=== PATIENT | male | born 1945 | race Caucasian/White ===

== ENCOUNTER 2019-06-09 01:32 | Inpatient (IN) | payer MEDICARE ==
[~2019-06-09] VITALS: Ht 177.8 cm; Wt 99.9 kg
[~2019-06-09 01:32] MED LIST: ASCO500T8 PO; ASPI-650 PO; ASPI81TA50 PO; ATEN-104 PO; CARB1TAB2 PO; CITA10TA8 PO; DOCU-131 PO; FENT1PAT77 TD; FERR325T23 PO; LACT1CAP24 PO; LEVO112T4 PO; LOSA50TA14 PO; METF500T17 PO; ROPI1TAB2 PO; SIMV40TA3 PO; TAMS0.4C2 PO
[2019-06-09] MEDS ORDERED: PIPERACILLIN/TAZO/PMX 3.375GM 50 ML ONE (01:42)
--- NOTE | 2019-06-09 01:50 | NUR ---
PT BIB [facility], RESPONSIVE ONLY TO PAIN. PT WITH LOW BP, SBP IN THE 50S, PER [facility]. NOREPI DRIP STARTED IN THE FIELD. PT ATTACHED TO ALL MONITORS.
--- NOTE | 2019-06-09 01:51 | NUR ---
DR LUCERO UNABLE TO REACH FAMILY
[2019-06-09] MEDS ORDERED: SODIUM CHLORIDE 0.9% 1,000ML IVBOLUS ONE ×2 (02:00→03:00)
[2019-06-09] MEDS ORDERED: SODIUM CHLORIDE FLUSH 10ML SYR IVF ONE (02:00)
[2019-06-09] MEDS ORDERED: VANCOMYCIN PER PHARMACY IV ONE (02:00)
[2019-06-09] MEDS ORDERED: PIPERACILLIN/TAZO/PMX 3.375GM 50 ML IVPB ONE (02:00)
[2019-06-09] MEDS ORDERED: PANTOPRAZOLE 80 MG in SODIUM CHLORIDE 0.9% 100 ML IV SCH (02:02)
--- NOTE | 2019-06-09 02:02 | NUR ---
ER MD AT BEDSIDE TO ASSESS BLOOD IN STOOL. POSITIVE RESULTS
--- NOTE | 2019-06-09 02:02 | NUR ---
pt hypovolemic, unable to visualize veins for CVP, will place central line in groin. Pt was heme positive as well, pt did cry out with rectal check. Remains hypotensive, sr monitor rate 70's, pt is on beta constance
--- NOTE | 2019-06-09 02:05 | NUR ---
ER RESIDENT PRASHANT TO INSERT LEFT FEMORAL LINE AT THIS TIME.
--- NOTE | 2019-06-09 02:06 | NUR ---
LAB AT BEDSIDE TO DRAW ALL BLOOD CULTURES.
[2019-06-09 02:21] LABS: MEAN CORPUSCULAR HEMOGLOBIN 31.4 pg (27.5-34.5); MEAN CORPUSCULAR HGB CONC 32.3 g/dL (33.2-36.2); MEAN CORPUSCULAR VOLUME 97.3 fL (81-97); MEAN PLATELET VOLUME 7.5 fL (7.4-10.4); PLATELET COUNT 173 x10^3/uL (130-400); RED BLOOD COUNT 3.93 x10^6/uL (4.38-5.82); RED CELL DISTRIBUTION WIDTH 13.9 % (9.4-14.8)
[2019-06-09] MEDS ORDERED: MELA1TAB19 SL (02:22)
[2019-06-09] MEDS ORDERED: INSU100C5 SQ-INSULIN (02:22)
[2019-06-09] MEDS ORDERED: SIMV40TA3 PO (02:22)
[2019-06-09] MEDS ORDERED: CARB1TAB44 PO (02:22)
[2019-06-09] MEDS ORDERED: TAMS-11 PO (02:22)
[2019-06-09] MEDS ORDERED: ATEN50TA41 PO (02:22)
[2019-06-09] MEDS ORDERED: HYDR-36 PO (02:22)
[2019-06-09] MEDS ORDERED: PANTOPRAZOLE 40 MG IV ONE (02:27)
[2019-06-09] MEDS ORDERED: PLEASE ENTER HEIGHT AND WEIGHT MC SCH (02:30)
[2019-06-09] MEDS ORDERED: NOREPINEPHRINE 4 MG in SODIUM CHLORIDE 0.9% 246 ML IV PRN ×2 (02:30→03:44)
[2019-06-09] MEDS ORDERED: PANTOPRAZOLE 40 MG IV IVPush ONE (02:30)
[2019-06-09 02:31] LABS: ALANINE AMINOTRANSFERASE 8 U/L (12-78); ALBUMIN 2.4 g/dL (3.4-5.0); ANION GAP 12 mmol/L (5-15); CALCIUM 8.1 mg/dL (8.5-10.1); CHLORIDE 118 mmol/L (98-107); CREATININE 1.87 mg/dL (0.7-1.3)
[2019-06-09 02:32] LABS: INTERNATIONAL NORMALIZED RATIO 1.12 (0.93-1.1); PROTHROMBIN TIME 11.7 Seconds (9.6-11.5)
[2019-06-09 02:35] LABS: ALKALINE PHOSPHATASE 66 U/L (45-117); BILIRUBIN,TOTAL 1.1 mg/dL (0.2-1.0); TOTAL PROTEIN 5.1 g/dL (6.4-8.2); TROPONIN I 0.015 ng/mL (0.000-0.045)
--- NOTE | 2019-06-09 02:37 | NUR ---
MED REQUEST SENT TO PHARMACY
--- NOTE | 2019-06-09 02:38 | NUR ---
PER DR LUCERO, HOLD ABX
[2019-06-09 02:40] LABS: MD YES
[2019-06-09 02:42] LABS: BAND#(MANUAL) 1.22 x10^3/uL; BANDS%(MANUAL) 14 % (0-7); LYMPHS% (MANUAL) 23 % (22-44); MONOS% (MANUAL) 8 % (2-9); SEG#(MANUAL) 4.79 x10^3/uL (1.8-6.8); SEGS% (MANUAL) 55 % (42-75)
[2019-06-09 02:43] LABS: ANISOCYTOSIS 1+; ECHINOCYTES 1+; NRBC % (MANUAL) 1 % (0-1)
[2019-06-09 02:44] LABS: <PLATELET ESTIMATE> DECREASED; <PLT MORPHOLOGY> NORMAL PLT MORPH
[2019-06-09] MEDS ORDERED: SODIUM CHLORIDE 0.9% 1,000 ML IV ONE (02:48)
[2019-06-09] MEDS ORDERED: VANCOMYCIN 1,800 MG in SODIUM CHLORIDE 0.9% 250 ML IV ONE (03:00)
--- NOTE | 2019-06-09 03:10 | NUR ---
antibiotics infusing, blood cultures drawn times 2 prior to administration
--- NOTE | 2019-06-09 03:12 | NUR ---
HOSPITALIST TO BEDSIDE AT THIS TIME
[2019-06-09] MEDS ORDERED: morphine SULFATE 10 MG/ML, 1ML IVPush PRN (03:30)
[2019-06-09] MEDS ORDERED: LACTATED RINGERS 1,000 ML IV SCH (03:30)
--- NOTE | 2019-06-09 03:35 | NUR ---
PT TO CT AT THIS TIME
[2019-06-09] MEDS ORDERED: VANCOMYCIN PER PHARMACY MC PRN (04:00)
[2019-06-09] MEDS ORDERED: ZOSYN PER PHARMACY MC PRN (04:00)
--- NOTE | 2019-06-09 04:00 | NUR ---
pt remains in CT at this time. CT notes that pt is currently stable, have multiple test to do.
--- NOTE | 2019-06-09 04:10 | NUR ---
PT ADULT DIAPER CHANGED. SMALL AMOUNT OF BLACK TARRY STOOL, PT SKIN CLEANSED. NEW, CLEAN ADULT DIAPER PLACED.
--- NOTE | 2019-06-09 04:25 | NUR ---
PT RETURN FROM CT, B/P 84/51, TITRATE LEVO. PT PLACED ON [facility]OS[facility]ITAL BED FOR COMFORT. LAB TO BEDSIDE TO DRAW.
--- NOTE | 2019-06-09 05:05 | NUR ---
UNABLE TO RETRACT PTS [place], MULTIPLE ATTEMPTS BY 2 DIFFERENT STAFF MEMBERS, STERILE FIELD MAINTAINED. AREA CLEANSED WELL, NO DISCHARGE, REDNESS, DRAINAGE. AWARE AND WILL PALCE CONDOM CATH. PT HAD LARGE AMOUNT OF URINE OUT FROM CT.
--- NOTE | 2019-06-09 05:14 | NUR ---
REPORT GIVEN TO BLANCA ROBERTS IN CCU.
[2019-06-09] MEDS: PANTOPRAZOLE 40 MG IV IV SCH (05:16)
--- NOTE | 2019-06-09 05:32 | NUR ---
Pt's son calls at this time and updated on situation. States that he will be coming down to the hospital this am. Aware that pt is critically ill but stable at this time and going to ICU level care. Son notes that pt is a DNR and that he has POA. Clarify that pt does not desire CPR, son aware of the interventions thus far.
[2019-06-09] MEDS ORDERED: PHARMACOKINETIC MONITORING MC PRN (06:30)
[2019-06-09 08:10] LABS: CLOSTRIDIUM DIFFICILE ANTIGEN NEGATIVE; CLOSTRIDIUM DIFFICILE TOXIN NEGATIVE (Negative)
[2019-06-09] MEDS: SODIUM CHLORIDE 0.9% 1,000 ML IV SCH ×2 (09:30→17:06)
[2019-06-09] MEDS: INSULIN LISPRO 100 UNITS/ML, PEN SQ-INSULIN SCH ×3 (11:00→20:43)
[2019-06-09] MEDS: PIPERACILLIN/TAZO/PMX 2.25GM 50 ML IVPB SCH ×2 (12:07→17:05)
[2019-06-09 12:56] LABS: MICROSCOPIC INDICATED
[2019-06-09 12:57] LABS: CULTURE INDICATED? YES
[2019-06-10] MEDS ORDERED: FENTANYL PF 100 MCG/2ML ONE (00:11)
[2019-06-10] MEDS: PIPERACILLIN/TAZO/PMX 2.25GM 50 ML IVPB SCH ×3 (00:14→12:16)
[2019-06-10] MEDS ORDERED: FENTANYL PF 100 MCG/2ML IVPush PRN (00:30)
[2019-06-10] MEDS: SODIUM CHLORIDE 0.9% 1,000 ML IV SCH (02:19)
[2019-06-10 04:07] VITALS: BP 104/57
[2019-06-10 04:14] LABS: MEAN CORPUSCULAR HEMOGLOBIN 32.2 pg (27.5-34.5); MEAN CORPUSCULAR HGB CONC 33.7 g/dL (33.2-36.2); MEAN CORPUSCULAR VOLUME 95.4 fL (81-97); MEAN PLATELET VOLUME 7.3 fL (7.4-10.4); PLATELET COUNT 178 x10^3/uL (130-400); RED BLOOD COUNT 3.47 x10^6/uL (4.38-5.82); RED CELL DISTRIBUTION WIDTH 14.2 % (9.4-14.8)
[2019-06-10] MEDS: PANTOPRAZOLE 40 MG IV IV SCH (04:25)
[2019-06-10 04:26] LABS: ANION GAP 8 mmol/L (5-15); CALCIUM 7.7 mg/dL (8.5-10.1); CHLORIDE 121 mmol/L (98-107); CREATININE 1.17 mg/dL (0.7-1.3)
[2019-06-10 04:33] LABS: MD YES
[2019-06-10 04:35] LABS: <PLATELET ESTIMATE> ADEQUATE; <RBC MORPHOLOGY> NORMAL; BANDS%(MANUAL) 11 % (0-7); LYMPHS% (MANUAL) 10 % (22-44); MONOS% (MANUAL) 3 % (2-9); SEGS% (MANUAL) 76 % (42-75); SMALL PLATELETS 1+
[2019-06-10] MEDS: INSULIN LISPRO 100 UNITS/ML, PEN SQ-INSULIN SCH ×4 (06:19→23:00)
[2019-06-10] MEDS: SODIUM CHLORIDE 0.45% 1,000 ML IV SCH ×2 (06:52→17:30)
[2019-06-10 16:43] VITALS: BP 121/58
[2019-06-10] MEDS: CARBIDOPA/LEVODOPA CR 50 MG/200 MG TABLET PO SCH ×2 (17:30→21:01)
[2019-06-10] MEDS: ASPIRIN 325 MG TABLET EC PO SCH (17:30)
[2019-06-10] MEDS: PIPERACILLIN/TAZO/PMX 4.5GM 100 ML IVPB SCH (17:55)
[2019-06-10 19:44] VITALS: BP 104/64
[2019-06-10] MEDS: metFORMIN 500 MG TABLET PO SCH (21:00)
[2019-06-10] MEDS: ROPINIROLE 1MG TABLET PO SCH (21:01)
[2019-06-10] MEDS: SIMVASTATIN 40 MG TABLET PO SCH (21:02)
[2019-06-11] MEDS: PIPERACILLIN/TAZO/PMX 4.5GM 100 ML IVPB SCH ×4 (00:26→18:09)
[2019-06-11 00:27] VITALS: BP 103/63
[2019-06-11] MEDS: PANTOPRAZOLE 40 MG IV IV SCH (03:58)
[2019-06-11] MEDS: SODIUM CHLORIDE 0.45% 1,000 ML IV SCH ×2 (04:02→13:42)
[2019-06-11] MEDS: INSULIN LISPRO 100 UNITS/ML, PEN SQ-INSULIN SCH ×4 (05:00→23:00)
[2019-06-11] MEDS: CARBIDOPA/LEVODOPA CR 50 MG/200 MG TABLET PO SCH ×4 (05:17→21:38)
[2019-06-11] MEDS: ASPIRIN 325 MG TABLET EC PO SCH ×2 (05:17→17:10)
[2019-06-11 05:55] LABS: MEAN CORPUSCULAR HEMOGLOBIN 32.1 pg (27.5-34.5); MEAN CORPUSCULAR HGB CONC 33.7 g/dL (33.2-36.2); MEAN CORPUSCULAR VOLUME 95.4 fL (81-97); MEAN PLATELET VOLUME 7.5 fL (7.4-10.4); PLATELET COUNT 144 x10^3/uL (130-400); RED BLOOD COUNT 3.12 x10^6/uL (4.38-5.82); RED CELL DISTRIBUTION WIDTH 14.1 % (9.4-14.8)
[2019-06-11 05:58] LABS: ANION GAP 7 mmol/L (5-15); CALCIUM 7.8 mg/dL (8.5-10.1); CHLORIDE 117 mmol/L (98-107)
[2019-06-11] MEDS ORDERED: VANCOMYCIN 1,800 MG in SODIUM CHLORIDE 0.9% 250 ML IV SCH (06:00)
[2019-06-11 06:24] LABS: BASOPHILS # (AUTO) 0.01 x10^3/uL (0-0.1); BASOPHILS % (AUTO) 0 % (0-1); EOSINOPHILS # (AUTO) 0.08 x10^3/uL (0-0.4); EOSINOPHILS % (AUTO) 1 % (1-7); LYMPHOCYTES # (AUTO) 1.55 x10^3/uL (1-3.4); LYMPHOCYTES % (AUTO) 19 % (22-44); MD SCAN; MONOCYTES # (AUTO) 0.34 x10^3/uL (0.2-0.8); MONOCYTES % (AUTO) 4 % (2-9); NEUTROPHILS # (AUTO) 6.28 x10^3/uL (1.8-6.8); NEUTROPHILS % (AUTO) 76 % (42-75)
[2019-06-11 07:23] VITALS: BP 111/73
[2019-06-11] MEDS: metFORMIN 500 MG TABLET PO SCH ×2 (09:00→21:38)
[2019-06-11] MEDS: CITALOPRAM 10 MG TABLET PO SCH (09:04)
[2019-06-11] MEDS: LOSARTAN 50MG TABLET PO SCH (09:04)
[2019-06-11] MEDS: FERROUS SULFATE 325 MG TABLET PO SCH (09:04)
[2019-06-11] MEDS: TAMSULOSIN 0.4 MG CAP.ER.24H PO SCH (09:04)
[2019-06-11] MEDS: LEVOTHYROXINE 112 MCG TABLET PO SCH (09:05)
[2019-06-11] MEDS: ATENOLOL 50 MG TABLET PO SCH (09:05)
[2019-06-11 14:02] VITALS: BP 114/68
[2019-06-11 19:58] VITALS: BP 112/62
[2019-06-11] MEDS: SIMVASTATIN 40 MG TABLET PO SCH (21:38)
[2019-06-11] MEDS: ROPINIROLE 1MG TABLET PO SCH (21:38)
[2019-06-12] MEDS: SODIUM CHLORIDE 0.45% 1,000 ML IV SCH ×2 (00:06→11:00)
[2019-06-12] MEDS: PIPERACILLIN/TAZO/PMX 4.5GM 100 ML IVPB SCH ×5 (00:06→23:53)
[2019-06-12 01:31] VITALS: BP 109/62
[2019-06-12] MEDS: PANTOPRAZOLE 40 MG IV IV SCH (04:13)
[2019-06-12] MEDS: INSULIN LISPRO 100 UNITS/ML, PEN SQ-INSULIN SCH ×2 (05:00→11:00)
[2019-06-12] MEDS: ASPIRIN 325 MG TABLET EC PO SCH ×2 (06:08→18:23)
[2019-06-12] MEDS: CARBIDOPA/LEVODOPA CR 50 MG/200 MG TABLET PO SCH ×4 (06:08→20:59)
[2019-06-12 07:11] VITALS: BP 134/74
[2019-06-12] MEDS: FERROUS SULFATE 325 MG TABLET PO SCH (08:58)
[2019-06-12] MEDS: metFORMIN 500 MG TABLET PO SCH (08:58)
[2019-06-12] MEDS: TAMSULOSIN 0.4 MG CAP.ER.24H PO SCH (08:58)
[2019-06-12] MEDS: ATENOLOL 50 MG TABLET PO SCH (08:58)
[2019-06-12] MEDS: CITALOPRAM 10 MG TABLET PO SCH (08:58)
[2019-06-12] MEDS: LEVOTHYROXINE 112 MCG TABLET PO SCH (08:58)
[2019-06-12] MEDS: LOSARTAN 50MG TABLET PO SCH (08:59)
[2019-06-12 13:37] VITALS: BP 137/71
[2019-06-12 19:47] VITALS: BP 127/71
[2019-06-12] MEDS: ROPINIROLE 1MG TABLET PO SCH (20:59)
[2019-06-12] MEDS: SIMVASTATIN 40 MG TABLET PO SCH (20:59)
[2019-06-13 01:09] VITALS: BP 132/66
[2019-06-13 03:26] LABS: ANION GAP 7 mmol/L (5-15); CALCIUM 7.6 mg/dL (8.5-10.1); CHLORIDE 117 mmol/L (98-107)
[2019-06-13 03:27] LABS: CREATININE 0.68 mg/dL (0.7-1.3)
[2019-06-13 03:33] LABS: MEAN CORPUSCULAR HEMOGLOBIN 32.2 pg (27.5-34.5); MEAN CORPUSCULAR HGB CONC 33.6 g/dL (33.2-36.2); MEAN CORPUSCULAR VOLUME 95.9 fL (81-97); MEAN PLATELET VOLUME 7.6 fL (7.4-10.4); PLATELET COUNT 146 x10^3/uL (130-400); RED CELL DISTRIBUTION WIDTH 13.6 % (9.4-14.8)
[2019-06-13 03:53] LABS: MD YES
[2019-06-13 03:57] LABS: <PLATELET ESTIMATE> ADEQUATE; ANISOCYTOSIS 1+; EOS#(MANUAL) 0.15 x10^3/uL (0.0-0.4); EOS% (MANUAL) 2 % (1-7); LYMPH#(MANUAL) 0.99 x10^3/uL (1-3.4); LYMPHS% (MANUAL) 13 % (22-44); MONOS#(MANUAL) 0.38 x10^3/uL (0.3-2.7); MONOS% (MANUAL) 5 % (2-9); SEG#(MANUAL) 6.08 x10^3/uL (1.8-6.8); SEGS% (MANUAL) 80 % (42-75)
[2019-06-13 03:58] LABS: <PLT MORPHOLOGY> NORMAL PLT MORPH
[2019-06-13] MEDS: PANTOPRAZOLE 40 MG IV IV SCH (04:04)
[2019-06-13] MEDS: PIPERACILLIN/TAZO/PMX 4.5GM 100 ML IVPB SCH ×4 (05:51→23:44)
[2019-06-13 07:05] VITALS: BP 109/69
[2019-06-13] MEDS: ASPIRIN 325 MG TABLET EC PO SCH ×2 (07:41→17:27)
[2019-06-13] MEDS: CARBIDOPA/LEVODOPA CR 50 MG/200 MG TABLET PO SCH ×4 (07:41→20:34)
[2019-06-13] MEDS: LEVOTHYROXINE 112 MCG TABLET PO SCH (07:44)
[2019-06-13] MEDS: CITALOPRAM 10 MG TABLET PO SCH (07:44)
[2019-06-13] MEDS: LOSARTAN 50MG TABLET PO SCH (07:45)
[2019-06-13] MEDS: ATENOLOL 50 MG TABLET PO SCH (07:45)
[2019-06-13] MEDS: FERROUS SULFATE 325 MG TABLET PO SCH (07:45)
[2019-06-13] MEDS: TAMSULOSIN 0.4 MG CAP.ER.24H PO SCH (07:45)
[2019-06-13] MEDS ORDERED: POTASSIUM CHLORIDE 20 MEQ TAB.ER.PRT PO ONE (10:00)
[2019-06-13] MEDS ORDERED: POTASSIUM CHLORIDE 40 MEQ in SODIUM CHLORIDE 0.9% 500 ML IV ONE (10:00)
[2019-06-13] MEDS ORDERED: DEXTROSE 5% 1,000 ML IV ONE (12:00)
[2019-06-13 14:00] VITALS: BP 125/75
[2019-06-13] MEDS: POTASSIUM CHLORIDE 20 MEQ TAB.ER.PRT PO SCH (17:26)
[2019-06-13 19:17] VITALS: BP 138/77
[2019-06-13] MEDS: ROPINIROLE 1MG TABLET PO SCH (20:34)
[2019-06-13] MEDS: SIMVASTATIN 40 MG TABLET PO SCH (20:34)
[2019-06-14 01:15] VITALS: BP 121/70
[2019-06-14 03:30] LABS: BASOPHILS # (AUTO) 0.01 x10^3/uL (0-0.1); BASOPHILS % (AUTO) 0 % (0-1); EOSINOPHILS # (AUTO) 0.14 x10^3/uL (0-0.4); EOSINOPHILS % (AUTO) 2 % (1-7); LYMPHOCYTES % (AUTO) 20 % (22-44); MD NO; MEAN CORPUSCULAR HEMOGLOBIN 32.2 pg (27.5-34.5); MEAN CORPUSCULAR HGB CONC 33.9 g/dL (33.2-36.2); MEAN CORPUSCULAR VOLUME 94.8 fL (81-97); MEAN PLATELET VOLUME 7.3 fL (7.4-10.4); MONOCYTES # (AUTO) 0.53 x10^3/uL (0.2-0.8); MONOCYTES % (AUTO) 8 % (2-9); NEUTROPHILS # (AUTO) 4.97 x10^3/uL (1.8-6.8); NEUTROPHILS % (AUTO) 71 % (42-75); PLATELET COUNT 144 x10^3/uL (130-400); RED BLOOD COUNT 3.03 x10^6/uL (4.38-5.82); RED CELL DISTRIBUTION WIDTH 13.6 % (9.4-14.8)
[2019-06-14 03:40] LABS: ANION GAP 6 mmol/L (5-15); CALCIUM 7.4 mg/dL (8.5-10.1); CHLORIDE 116 mmol/L (98-107); CREATININE 0.65 mg/dL (0.7-1.3)
[2019-06-14] MEDS: PIPERACILLIN/TAZO/PMX 4.5GM 100 ML IVPB SCH ×3 (06:03→17:19)
[2019-06-14 08:43] VITALS: BP 133/71
[2019-06-14] MEDS: TAMSULOSIN 0.4 MG CAP.ER.24H PO SCH (08:47)
[2019-06-14] MEDS: LEVOTHYROXINE 112 MCG TABLET PO SCH (08:47)
[2019-06-14] MEDS: FERROUS SULFATE 325 MG TABLET PO SCH (08:47)
[2019-06-14] MEDS: ASPIRIN 325 MG TABLET EC PO SCH ×2 (08:47→17:20)
[2019-06-14] MEDS: ATENOLOL 50 MG TABLET PO SCH (08:47)
[2019-06-14] MEDS: PANTOPROZOLE 40MG TABLET PO SCH (08:47)
[2019-06-14] MEDS: CITALOPRAM 10 MG TABLET PO SCH (08:47)
[2019-06-14] MEDS: LOSARTAN 50MG TABLET PO SCH (08:47)
[2019-06-14] MEDS: CARBIDOPA/LEVODOPA CR 50 MG/200 MG TABLET PO SCH ×4 (08:47→20:09)
[2019-06-14] MEDS: HYDROcodone/APAP 5/325 TABLET PO PRN ×2 (09:25→17:58)
[2019-06-14] MEDS ORDERED: POTASSIUM CHLORIDE 20 MEQ TAB.ER.PRT PO ONE (10:00)
[2019-06-14] MEDS: MAGNESIUM CHLORIDE 64 MG TABLET.DR PO SCH ×2 (11:49→20:09)
[2019-06-14] MEDS ORDERED: MAGNESIUM SULFATE PMX 2GM/50ML 50 ML IV ONE (13:30)
[2019-06-14] MEDS ORDERED: POTASSIUM CHLORIDE 40 MEQ in SODIUM CHLORIDE 0.9% 100 ML IV ONE (13:30)
[2019-06-14 14:57] VITALS: BP 128/77
[2019-06-14] MEDS: POTASSIUM CHLORIDE 20 MEQ TAB.ER.PRT PO SCH (17:20)
[2019-06-14 19:54] VITALS: BP 121/66
[2019-06-14] MEDS: ROPINIROLE 1MG TABLET PO SCH (20:09)
[2019-06-14] MEDS: SIMVASTATIN 40 MG TABLET PO SCH (20:09)
[2019-06-15] MEDS: PIPERACILLIN/TAZO/PMX 4.5GM 100 ML IVPB SCH ×5 (00:11→23:57)
[2019-06-15 01:13] VITALS: BP 129/76
[2019-06-15 04:12] LABS: ANION GAP 6 mmol/L (5-15); CALCIUM 7.7 mg/dL (8.5-10.1); CHLORIDE 117 mmol/L (98-107); CREATININE 0.68 mg/dL (0.7-1.3)
[2019-06-15 07:15] VITALS: BP 144/81
[2019-06-15] MEDS: PANTOPROZOLE 40MG TABLET PO SCH (08:11)
[2019-06-15] MEDS: FERROUS SULFATE 325 MG TABLET PO SCH (08:11)
[2019-06-15] MEDS: ASPIRIN 325 MG TABLET EC PO SCH ×2 (08:11→17:36)
[2019-06-15] MEDS: CARBIDOPA/LEVODOPA CR 50 MG/200 MG TABLET PO SCH ×4 (08:11→20:29)
[2019-06-15] MEDS: LOSARTAN 50MG TABLET PO SCH (08:12)
[2019-06-15] MEDS: ATENOLOL 50 MG TABLET PO SCH (08:12)
[2019-06-15] MEDS: CITALOPRAM 10 MG TABLET PO SCH (08:12)
[2019-06-15] MEDS: MAGNESIUM CHLORIDE 64 MG TABLET.DR PO SCH ×2 (08:12→20:29)
[2019-06-15] MEDS: LEVOTHYROXINE 112 MCG TABLET PO SCH (08:12)
[2019-06-15] MEDS: TAMSULOSIN 0.4 MG CAP.ER.24H PO SCH (08:12)
[2019-06-15] MEDS ORDERED: POTASSIUM CHLORIDE 20 MEQ in DEXTROSE 5% 1,000 ML IV SCH (12:00)
[2019-06-15] MEDS ORDERED: POTASSIUM CHLORIDE 40 MEQ in SODIUM CHLORIDE 0.9% 500 ML IV ONE (12:00)
[2019-06-15 12:35] VITALS: BP 149/81
[2019-06-15] MEDS: POTASSIUM CHLORIDE 20 MEQ in DEXTROSE 5% 1,000 ML IV SCH (16:25)
[2019-06-15] MEDS: POTASSIUM CHLORIDE 20 MEQ TAB.ER.PRT PO SCH (17:36)
[2019-06-15 19:53] VITALS: BP 162/80
[2019-06-15] MEDS: ROPINIROLE 1MG TABLET PO SCH (20:29)
[2019-06-15] MEDS: SIMVASTATIN 40 MG TABLET PO SCH (20:29)
[2019-06-16 01:36] VITALS: BP 150/75
[2019-06-16] MEDS: POTASSIUM CHLORIDE 20 MEQ in DEXTROSE 5% 1,000 ML IV SCH (02:09)
[2019-06-16 05:25] LABS: ANION GAP 6 mmol/L (5-15); CALCIUM 7.6 mg/dL (8.5-10.1); CHLORIDE 117 mmol/L (98-107)
[2019-06-16 05:26] LABS: CREATININE 0.62 mg/dL (0.7-1.3)
[2019-06-16] MEDS: PIPERACILLIN/TAZO/PMX 4.5GM 100 ML IVPB SCH ×4 (05:50→23:46)
[2019-06-16] MEDS: PANTOPROZOLE 40MG TABLET PO SCH (05:50)
[2019-06-16] MEDS: ASPIRIN 325 MG TABLET EC PO SCH ×2 (05:50→21:12)
[2019-06-16] MEDS: CARBIDOPA/LEVODOPA CR 50 MG/200 MG TABLET PO SCH ×4 (05:51→21:12)
[2019-06-16 07:15] VITALS: BP 163/84
[2019-06-16] MEDS: CITALOPRAM 10 MG TABLET PO SCH (08:28)
[2019-06-16] MEDS: MAGNESIUM CHLORIDE 64 MG TABLET.DR PO SCH ×2 (08:28→21:12)
[2019-06-16] MEDS: LEVOTHYROXINE 112 MCG TABLET PO SCH (08:28)
[2019-06-16] MEDS: TAMSULOSIN 0.4 MG CAP.ER.24H PO SCH (08:29)
[2019-06-16] MEDS: FERROUS SULFATE 325 MG TABLET PO SCH (08:29)
[2019-06-16] MEDS: LOSARTAN 50MG TABLET PO SCH (08:29)
[2019-06-16] MEDS: ATENOLOL 50 MG TABLET PO SCH (08:29)
[2019-06-16] MEDS ORDERED: Magnesium Chloride PO (12:31)
[2019-06-16] MEDS ORDERED: POTA20TA6 PO (12:31)
[2019-06-16] MEDS ORDERED: PANT40TA5 PO (12:39)
[2019-06-16] MEDS ORDERED: ASPI-650 PO (12:39)
[2019-06-16 14:48] VITALS: BP 152/82
[2019-06-16] MEDS: POTASSIUM CHLORIDE 20 MEQ TAB.ER.PRT PO SCH (17:03)
[2019-06-16 18:54] VITALS: BP 162/79
[2019-06-16] MEDS: HYDROcodone/APAP 5/325 TABLET PO PRN (21:11)
[2019-06-16] MEDS: SIMVASTATIN 40 MG TABLET PO SCH (21:12)
[2019-06-16] MEDS: ROPINIROLE 1MG TABLET PO SCH (21:12)
[2019-06-17 01:35] VITALS: BP 137/78
[2019-06-17] MEDS: PIPERACILLIN/TAZO/PMX 4.5GM 100 ML IVPB SCH ×2 (05:27→10:41)
[2019-06-17] MEDS: PANTOPROZOLE 40MG TABLET PO SCH (05:34)
[2019-06-17] MEDS: ASPIRIN 325 MG TABLET EC PO SCH (05:34)
[2019-06-17] MEDS: CARBIDOPA/LEVODOPA CR 50 MG/200 MG TABLET PO SCH ×2 (05:34→11:34)
[2019-06-17] MEDS: TAMSULOSIN 0.4 MG CAP.ER.24H PO SCH (08:55)
[2019-06-17] MEDS: FERROUS SULFATE 325 MG TABLET PO SCH (08:55)
[2019-06-17] MEDS: CITALOPRAM 10 MG TABLET PO SCH (08:55)
[2019-06-17] MEDS: ATENOLOL 50 MG TABLET PO SCH (08:56)
[2019-06-17] MEDS: LOSARTAN 50MG TABLET PO SCH (08:56)
[2019-06-17] MEDS: MAGNESIUM CHLORIDE 64 MG TABLET.DR PO SCH (08:56)
[2019-06-17] MEDS: HYDROcodone/APAP 5/325 TABLET PO PRN (08:56)
[2019-06-17] MEDS: LEVOTHYROXINE 112 MCG TABLET PO SCH (08:56)
[2019-06-17 09:28] VITALS: BP 157/83
== END 2019-06-17 12:32 | disposition still patient (30) | DRG 871 ==
LOC: ED 02:20 → EDIP 02:59 → CCU 05:55 → 3NE 06-10 16:10
PROVIDERS: ADMIT Family Medicine; ATTEND Family Medicine
PROC: 0T9B70Z Drainage of Bladder with Drainage Device, Via Natural or Artificial Opening (ICD-10-PCS; principal; 2019-06-09)
PROC: 02HV33Z Insertion of Infusion Device into Superior Vena Cava, Percutaneous Approach (ICD-10-PCS; 2019-06-09)
PROC: B548ZZA Ultrasonography of Superior Vena Cava, Guidance (ICD-10-PCS; 2019-06-09)
DX: A41.9 Sepsis, unspecified organism (principal); R65.21 Severe sepsis with septic shock; N17.0 Acute kidney failure with tubular necrosis; J15.9 Unspecified bacterial pneumonia; K55.9 Vascular disorder of intestine, unspecified; N39.0 Urinary tract infection, site not specified; G93.40 Encephalopathy, unspecified; E87.0 Hyperosmolality and hypernatremia; A09 Infectious gastroenteritis and colitis, unspecified; E03.9 Hypothyroidism, unspecified; E11.9 Type 2 diabetes mellitus without complications; E87.6 Hypokalemia; D64.9 Anemia, unspecified; F02.80 Dementia in other diseases classified elsewhere, unspecified severity, without behavioral disturbance, psychotic disturbance, mood disturbance, and anxiety; G20 Parkinson's disease; I10 Essential (primary) hypertension; N20.0 Calculus of kidney; R09.02 Hypoxemia; Z66 Do not resuscitate; Z79.82 Long term (current) use of aspirin; Z88.5 Allergy status to narcotic agent; Z88.8 Allergy status to other drugs, medicaments and biological substances; Z91.048 Other nonmedicinal substance allergy status; Z79.4 Long term (current) use of insulin
CPT/HCPCS: 36415; 36556; 36573; 70450; 71045; 71250; 74176; 80048; 80053; 81001; 82947; 82962; 83036; 83605; 83735; 83880; 84100; 84145; 84443; 84484; 85014; 85018; 85025; 85610; 85730; 86850; 86900; 87040; 87081; 87086; 87324; 93005; 96361; 96365; 96366; 96368; 96375; G0378; J2543; J3010; J3370; J3480; J7070; C1751; C9113; J3475; J7030; J7040; J7050

== ENCOUNTER 2019-11-19 20:18 | Inpatient (IN) | payer MEDICARE ==
[~2019-11-19] VITALS: Ht 182.9 cm; Wt 91.7 kg
[~2019-11-19 20:18] MED LIST changes: +ATEN50TA41 PO; +CARB1TAB44 PO; +HYDR-36 PO; +INSU100C5 SQ-INSULIN; +MELA1TAB19 SL; +Magnesium Chloride PO; +PANT40TA5 PO; +POTA20TA6 PO; +TAMS-11 PO
--- NOTE | 2019-11-19 20:46 | NUR ---
Pt arrives via [facility] from [facility]. Per EMS, alf reports pt has had diarrhea x1 for which they tried IV fluids, but pt pulled out IV. [facility] reports systolic BP's in the 90's. No active diarrhea for EMS. EMS POC BS 136. Pt with known dementia. Pt awakens easily to verbal stimuli, no distress noted. Pt denies compliants. Abd soft, non-tender with normoactive BS. Pt on pulse ox/HR monitor.
--- NOTE | 2019-11-19 21:03 | NUR ---
ERP at bedside.
[2019-11-19] MEDS ORDERED: SODIUM CHLORIDE 0.9% 1,000ML IVBOLUS ONE (21:30)
--- NOTE | 2019-11-19 21:48 | NUR ---
straight cath attempted and no success at this time. Pt bladder scanned and minimal urine in bladder <100cc. Fluids continued and will reattempt for specimen.
--- NOTE | 2019-11-19 21:59 | NUR ---
pt has skin tear with flap to right elbow. optifoam dressing applied and skin care provided to site.
[2019-11-19 22:20] LABS: BASOPHILS # (AUTO) 0.01 x10^3/uL (0-0.1); BASOPHILS % (AUTO) 0 % (0-1); EOSINOPHILS # (AUTO) 0.07 x10^3/uL (0-0.4); EOSINOPHILS % (AUTO) 1 % (1-7); LYMPHOCYTES % (AUTO) 24 % (22-44); MD NO; MEAN CORPUSCULAR HEMOGLOBIN 30.7 pg (27.5-34.5); MEAN CORPUSCULAR HGB CONC 33.5 g/dL (33.2-36.2); MEAN CORPUSCULAR VOLUME 91.8 fL (81-97); MEAN PLATELET VOLUME 7.7 fL (7.4-10.4); MONOCYTES # (AUTO) 0.68 x10^3/uL (0.2-0.8); MONOCYTES % (AUTO) 8 % (2-9); NEUTROPHILS # (AUTO) 5.44 x10^3/uL (1.8-6.8); NEUTROPHILS % (AUTO) 66 % (42-75); PLATELET COUNT 172 x10^3/uL (130-400); RED BLOOD COUNT 3.64 x10^6/uL (4.38-5.82)
[2019-11-19 22:25] LABS: INTERNATIONAL NORMALIZED RATIO 1.08 (0.93-1.1); PROTHROMBIN TIME 11.3 Seconds (9.6-11.5)
[2019-11-19 22:29] LABS: ALANINE AMINOTRANSFERASE 14 U/L (12-78); ANION GAP 5 mmol/L (5-15); CALCIUM 8.2 mg/dL (8.5-10.1); CHLORIDE 111 mmol/L (98-107); CREATININE 1.02 mg/dL (0.7-1.3)
[2019-11-19 22:33] LABS: ALKALINE PHOSPHATASE 82 U/L (45-117); BILIRUBIN,TOTAL 0.6 mg/dL (0.2-1.0); TOTAL PROTEIN 6.7 g/dL (6.4-8.2); TROPONIN I < 0.015 ng/mL (0.000-0.045)
--- NOTE | 2019-11-19 22:40 | NUR ---
CONDOM CATH APPLIED TO PT. KAT CARE PROVIDED PRIOR TO APPLICATION.
--- NOTE | 2019-11-19 22:55 | NUR ---
Pt to imaging.
[2019-11-19] MEDS ORDERED: OMNIPAQUE 350 MG/ML, 100ML BOTTLE ONE (23:08)
--- NOTE | 2019-11-19 23:16 | NUR ---
Pt back from ct at this time.
--- NOTE | 2019-11-19 23:31 | NUR ---
Pt sleeping on gurney. Side rails up for safety. Call light within reach. Pt remains on monitors.
--- NOTE | 2019-11-20 00:14 | NUR ---
Pt to be admitted, awating bed at this time.
[2019-11-20] MEDS ORDERED: ONDANSETRON 2MG/ML, 2ML IVPush PRN (00:30)
[2019-11-20] MEDS ORDERED: METRONIDAZOLE PMX 500MG/100ML 100 ML IV ONE (00:30)
[2019-11-20] MEDS ORDERED: CIPROFLOXACIN/PMX 400MG/200ML 200 ML IV ONE (00:30)
[2019-11-20 01:00] VITALS: BP 104/63
--- NOTE | 2019-11-20 01:13 | NUR ---
LATE ENTRY: REPORT WAS CALLED TO PT. RN INFORMED PT IS HIGH FALL RISK, PT HAS CONDOM CATH. PT GETTING AGGRESSIVE WITH REMOVAL OF BREIF REQUSTING IT BE LEFT ON. PT NOT KEEPING YELLOW GOWN ON AT THIS TIME. PT IS A/OX2 AT THIS TIME. KAT CARE PROVIDED MULTIPLE TIMES AND PT WAS CHANGED X 2 IN ED.
[2019-11-20] MEDS: SODIUM CHLORIDE 0.9% 1,000 ML IV SCH ×2 (01:33→20:42)
[2019-11-20] MEDS: METRONIDAZOLE PMX 500MG/100ML 100 ML IV SCH ×3 (01:56→18:01)
[2019-11-20 02:29] LABS: CLOSTRIDIUM DIFFICILE ANTIGEN NEGATIVE; CLOSTRIDIUM DIFFICILE TOXIN NEGATIVE (Negative)
[2019-11-20] MEDS: CIPROFLOXACIN/PMX 400MG/200ML 200 ML IV SCH ×2 (03:03→12:37)
[2019-11-20] MEDS: PANTOPROZOLE 40MG TABLET PO SCH (05:34)
[2019-11-20] MEDS: CARBIDOPA/LEVODOPA CR 50 MG/200 MG TABLET PO SCH ×5 (05:34→20:42)
[2019-11-20] MEDS: ASPIRIN 325 MG TABLET EC PO SCH (05:34)
[2019-11-20 06:15] LABS: BASOPHILS # (AUTO) 0.02 x10^3/uL (0-0.1); BASOPHILS % (AUTO) 0 % (0-1); EOSINOPHILS % (AUTO) 2 % (1-7); LYMPHOCYTES # (AUTO) 1.87 x10^3/uL (1-3.4); LYMPHOCYTES % (AUTO) 28 % (22-44); MD NO; MEAN CORPUSCULAR HEMOGLOBIN 30.5 pg (27.5-34.5); MEAN CORPUSCULAR HGB CONC 33.4 g/dL (33.2-36.2); MEAN CORPUSCULAR VOLUME 91.6 fL (81-97); MEAN PLATELET VOLUME 7.9 fL (7.4-10.4); MONOCYTES # (AUTO) 0.51 x10^3/uL (0.2-0.8); MONOCYTES % (AUTO) 8 % (2-9); NEUTROPHILS % (AUTO) 63 % (42-75); PLATELET COUNT 156 x10^3/uL (130-400); RED BLOOD COUNT 3.59 x10^6/uL (4.38-5.82); RED CELL DISTRIBUTION WIDTH 14.4 % (9.4-14.8)
[2019-11-20 06:24] LABS: ANION GAP 6 mmol/L (5-15); CALCIUM 8.1 mg/dL (8.5-10.1); CHLORIDE 112 mmol/L (98-107)
[2019-11-20 06:27] LABS: ALANINE AMINOTRANSFERASE 16 U/L (12-78); ALKALINE PHOSPHATASE 83 U/L (45-117); BILIRUBIN,TOTAL 0.6 mg/dL (0.2-1.0); CREATININE 0.93 mg/dL (0.7-1.3); TOTAL PROTEIN 6.4 g/dL (6.4-8.2)
[2019-11-20 07:04] VITALS: BP 96/55
[2019-11-20] MEDS: FERROUS SULFATE 325 MG TABLET PO SCH (09:44)
[2019-11-20] MEDS: CITALOPRAM 10 MG TABLET PO SCH (09:45)
[2019-11-20] MEDS: TAMSULOSIN 0.4 MG CAP.ER.24H PO SCH (09:45)
[2019-11-20] MEDS: LEVOTHYROXINE 112 MCG TABLET PO SCH (09:45)
[2019-11-20] MEDS: ASCORBIC ACID 500 MG TABLET PO SCH (09:45)
[2019-11-20 12:30] VITALS: BP 100/60
[2019-11-20 13:16] LABS: CULTURE INDICATED? YES; MICROSCOPIC INDICATED
[2019-11-20] MEDS: SIMVASTATIN 40 MG TABLET PO SCH (20:41)
[2019-11-21] MEDS: CIPROFLOXACIN/PMX 400MG/200ML 200 ML IV SCH ×2 (00:18→11:56)
[2019-11-21 00:59] VITALS: BP 111/52
[2019-11-21] MEDS: METRONIDAZOLE PMX 500MG/100ML 100 ML IV SCH ×3 (02:10→18:13)
[2019-11-21] MEDS: PANTOPROZOLE 40MG TABLET PO SCH (05:02)
[2019-11-21] MEDS: CARBIDOPA/LEVODOPA CR 50 MG/200 MG TABLET PO SCH ×4 (05:02→19:59)
[2019-11-21] MEDS: ASPIRIN 325 MG TABLET EC PO SCH (05:02)
[2019-11-21] MEDS: TAMSULOSIN 0.4 MG CAP.ER.24H PO SCH (09:18)
[2019-11-21] MEDS: CITALOPRAM 10 MG TABLET PO SCH (09:18)
[2019-11-21] MEDS: LEVOTHYROXINE 112 MCG TABLET PO SCH (09:18)
[2019-11-21] MEDS: FERROUS SULFATE 325 MG TABLET PO SCH (09:18)
[2019-11-21] MEDS: ASCORBIC ACID 500 MG TABLET PO SCH (09:22)
[2019-11-21] MEDS: SODIUM CHLORIDE 0.9% 1,000 ML IV SCH (09:23)
[2019-11-21 09:25] VITALS: BP 130/70
[2019-11-21 12:47] LABS: MICROSCOPIC INDICATED
[2019-11-21 13:00] LABS: CULTURE INDICATED? YES
[2019-11-21 13:30] VITALS: BP 123/69
[2019-11-21] MEDS: SIMVASTATIN 40 MG TABLET PO SCH (19:59)
[2019-11-21 20:07] VITALS: BP 142/68
[2019-11-22 01:28] VITALS: BP 161/83
[2019-11-22] MEDS: CIPROFLOXACIN/PMX 400MG/200ML 200 ML IV SCH ×2 (01:55→13:19)
[2019-11-22] MEDS: SODIUM CHLORIDE 0.9% 1,000 ML IV SCH (02:40)
[2019-11-22] MEDS: METRONIDAZOLE PMX 500MG/100ML 100 ML IV SCH ×3 (03:13→18:00)
[2019-11-22] MEDS: ASPIRIN 325 MG TABLET EC PO SCH (05:46)
[2019-11-22] MEDS: CARBIDOPA/LEVODOPA CR 50 MG/200 MG TABLET PO SCH ×4 (05:47→21:23)
[2019-11-22] MEDS: PANTOPROZOLE 40MG TABLET PO SCH (05:47)
[2019-11-22 06:24] LABS: ALBUMIN 2.9 g/dL (3.4-5.0); ANION GAP 8 mmol/L (5-15); CALCIUM 8.3 mg/dL (8.5-10.1); CHLORIDE 117 mmol/L (98-107)
[2019-11-22 06:25] LABS: BASOPHILS # (AUTO) 0.01 x10^3/uL (0-0.1); BASOPHILS % (AUTO) 0 % (0-1); EOSINOPHILS # (AUTO) 0.04 x10^3/uL (0-0.4); EOSINOPHILS % (AUTO) 1 % (1-7); LYMPHOCYTES # (AUTO) 1.54 x10^3/uL (1-3.4); LYMPHOCYTES % (AUTO) 34 % (22-44); MD NO; MEAN CORPUSCULAR HEMOGLOBIN 30.2 pg (27.5-34.5); MEAN CORPUSCULAR HGB CONC 33.3 g/dL (33.2-36.2); MEAN CORPUSCULAR VOLUME 90.5 fL (81-97); MEAN PLATELET VOLUME 7.7 fL (7.4-10.4); MONOCYTES # (AUTO) 0.41 x10^3/uL (0.2-0.8); MONOCYTES % (AUTO) 9 % (2-9); NEUTROPHILS # (AUTO) 2.59 x10^3/uL (1.8-6.8); NEUTROPHILS % (AUTO) 57 % (42-75); PLATELET COUNT 162 x10^3/uL (130-400); RED BLOOD COUNT 3.57 x10^6/uL (4.38-5.82); RED CELL DISTRIBUTION WIDTH 13.6 % (9.4-14.8)
[2019-11-22 06:29] LABS: ALANINE AMINOTRANSFERASE 9 U/L (12-78); ALKALINE PHOSPHATASE 73 U/L (45-117); BILIRUBIN,TOTAL 0.5 mg/dL (0.2-1.0); CREATININE 0.84 mg/dL (0.7-1.3); TOTAL PROTEIN 6.5 g/dL (6.4-8.2)
[2019-11-22 07:17] VITALS: BP 104/64
[2019-11-22] MEDS: LEVOTHYROXINE 112 MCG TABLET PO SCH (10:07)
[2019-11-22] MEDS: FERROUS SULFATE 325 MG TABLET PO SCH (10:07)
[2019-11-22] MEDS: TAMSULOSIN 0.4 MG CAP.ER.24H PO SCH (10:07)
[2019-11-22] MEDS: CITALOPRAM 10 MG TABLET PO SCH (10:07)
[2019-11-22] MEDS: ASCORBIC ACID 500 MG TABLET PO SCH (10:07)
[2019-11-22 13:09] VITALS: BP 102/60
[2019-11-22 19:28] VITALS: BP 135/65
[2019-11-22] MEDS: SIMVASTATIN 40 MG TABLET PO SCH (21:23)
[2019-11-23] MEDS: CIPROFLOXACIN/PMX 400MG/200ML 200 ML IV SCH ×2 (00:54→13:19)
[2019-11-23 02:04] VITALS: BP 130/76
[2019-11-23] MEDS: METRONIDAZOLE PMX 500MG/100ML 100 ML IV SCH ×3 (02:21→17:47)
[2019-11-23] MEDS: PANTOPROZOLE 40MG TABLET PO SCH (05:43)
[2019-11-23] MEDS: CARBIDOPA/LEVODOPA CR 50 MG/200 MG TABLET PO SCH ×4 (05:43→20:19)
[2019-11-23] MEDS: ASPIRIN 325 MG TABLET EC PO SCH (05:44)
[2019-11-23 06:57] VITALS: BP 156/78
[2019-11-23 07:37] LABS: MEAN CORPUSCULAR HEMOGLOBIN 30.7 pg (27.5-34.5); MEAN CORPUSCULAR HGB CONC 33.5 g/dL (33.2-36.2); MEAN CORPUSCULAR VOLUME 91.4 fL (81-97); MEAN PLATELET VOLUME 7.4 fL (7.4-10.4); PLATELET COUNT 154 x10^3/uL (130-400); RED BLOOD COUNT 3.35 x10^6/uL (4.38-5.82); RED CELL DISTRIBUTION WIDTH 13.9 % (9.4-14.8)
[2019-11-23 08:19] LABS: BASOPHILS # (AUTO) 0.01 x10^3/uL (0-0.1); BASOPHILS % (AUTO) 0 % (0-1); EOSINOPHILS # (AUTO) 0.11 x10^3/uL (0-0.4); EOSINOPHILS % (AUTO) 3 % (1-7); LYMPHOCYTES # (AUTO) 1.55 x10^3/uL (1-3.4); LYMPHOCYTES % (AUTO) 45 % (22-44); MD SCAN; MONOCYTES # (AUTO) 0.33 x10^3/uL (0.2-0.8); MONOCYTES % (AUTO) 10 % (2-9); NEUTROPHILS # (AUTO) 1.44 x10^3/uL (1.8-6.8); NEUTROPHILS % (AUTO) 42 % (42-75)
[2019-11-23] MEDS: CITALOPRAM 10 MG TABLET PO SCH (09:24)
[2019-11-23] MEDS: ASCORBIC ACID 500 MG TABLET PO SCH (09:24)
[2019-11-23] MEDS: LEVOTHYROXINE 112 MCG TABLET PO SCH (09:24)
[2019-11-23] MEDS: TAMSULOSIN 0.4 MG CAP.ER.24H PO SCH (09:24)
[2019-11-23] MEDS: FERROUS SULFATE 325 MG TABLET PO SCH (09:24)
[2019-11-23 14:11] VITALS: BP 131/77
[2019-11-23] MEDS ORDERED: ATENOLOL 50 MG TABLET PO ONE (15:30)
[2019-11-23] MEDS: ENOXAPARIN 40 MG/0.4 ML SQ SCH (15:35)
[2019-11-23 16:17] LABS: TROPONIN I < 0.015 ng/mL (0.000-0.045)
[2019-11-23 18:48] VITALS: BP 112/73
[2019-11-23] MEDS: SIMVASTATIN 40 MG TABLET PO SCH (20:19)
[2019-11-24 00:15] VITALS: BP 129/80
[2019-11-24] MEDS: CIPROFLOXACIN/PMX 400MG/200ML 200 ML IV SCH ×2 (00:36→13:36)
[2019-11-24] MEDS: METRONIDAZOLE PMX 500MG/100ML 100 ML IV SCH ×2 (01:45→11:03)
[2019-11-24] MEDS: PANTOPROZOLE 40MG TABLET PO SCH (05:40)
[2019-11-24] MEDS: ASPIRIN 325 MG TABLET EC PO SCH (05:40)
[2019-11-24] MEDS: CARBIDOPA/LEVODOPA CR 50 MG/200 MG TABLET PO SCH ×3 (05:41→17:01)
[2019-11-24 05:43] LABS: BASOPHILS # (AUTO) 0.01 x10^3/uL (0-0.1); BASOPHILS % (AUTO) 0 % (0-1); EOSINOPHILS # (AUTO) 0.09 x10^3/uL (0-0.4); EOSINOPHILS % (AUTO) 2 % (1-7); LYMPHOCYTES % (AUTO) 38 % (22-44); MD NO; MEAN CORPUSCULAR HEMOGLOBIN 30.5 pg (27.5-34.5); MEAN CORPUSCULAR HGB CONC 33.3 g/dL (33.2-36.2); MEAN CORPUSCULAR VOLUME 91.5 fL (81-97); MEAN PLATELET VOLUME 7.8 fL (7.4-10.4); MONOCYTES # (AUTO) 0.39 x10^3/uL (0.2-0.8); MONOCYTES % (AUTO) 9 % (2-9); NEUTROPHILS # (AUTO) 2.12 x10^3/uL (1.8-6.8); NEUTROPHILS % (AUTO) 50 % (42-75); PLATELET COUNT 160 x10^3/uL (130-400); RED BLOOD COUNT 3.51 x10^6/uL (4.38-5.82); RED CELL DISTRIBUTION WIDTH 13.9 % (9.4-14.8)
[2019-11-24 07:31] VITALS: BP 133/84
[2019-11-24] MEDS ORDERED: ATENOLOL 50 MG TABLET PO SCH (09:00)
[2019-11-24] MEDS: CITALOPRAM 10 MG TABLET PO SCH (09:25)
[2019-11-24] MEDS: ASCORBIC ACID 500 MG TABLET PO SCH (09:25)
[2019-11-24] MEDS: LEVOTHYROXINE 112 MCG TABLET PO SCH (09:25)
[2019-11-24] MEDS: TAMSULOSIN 0.4 MG CAP.ER.24H PO SCH (09:25)
[2019-11-24] MEDS: FERROUS SULFATE 325 MG TABLET PO SCH (09:25)
[2019-11-24 14:22] VITALS: BP_SYST 104; BP_SYST 98; BP_DIAS 60; BP_DIAS 68
[2019-11-24] MEDS ORDERED: CIPR500T3 PO (15:40)
[2019-11-24] MEDS ORDERED: METR-90 PO (15:40)
[2019-11-24] MEDS: ENOXAPARIN 40 MG/0.4 ML SQ SCH (15:40)
== END 2019-11-24 18:24 | DRG 371 ==
LOC: ED 22:11 → EDIP 11-20 00:42 → 3N 11-20 01:01 → 4WST 11-23 17:38
PROVIDERS: ADMIT Internal Medicine; ATTEND Hospitalist
PROC: 0T9B70Z Drainage of Bladder with Drainage Device, Via Natural or Artificial Opening (ICD-10-PCS; principal; 2019-11-20)
DX: A04.9 Bacterial intestinal infection, unspecified (principal); G93.41 Metabolic encephalopathy; N39.0 Urinary tract infection, site not specified; I10 Essential (primary) hypertension; F02.80 Dementia in other diseases classified elsewhere, unspecified severity, without behavioral disturbance, psychotic disturbance, mood disturbance, and anxiety; G20 Parkinson's disease; N40.0 Benign prostatic hyperplasia without lower urinary tract symptoms; Z66 Do not resuscitate; E03.9 Hypothyroidism, unspecified; D50.9 Iron deficiency anemia, unspecified; E11.9 Type 2 diabetes mellitus without complications; E78.5 Hyperlipidemia, unspecified; E86.0 Dehydration; K21.9 Gastro-esophageal reflux disease without esophagitis; G89.29 Other chronic pain; I48.0 Paroxysmal atrial fibrillation; N20.0 Calculus of kidney; Z88.6 Allergy status to analgesic agent; Z88.5 Allergy status to narcotic agent; Z79.4 Long term (current) use of insulin; Z91.09 Other allergy status, other than to drugs and biological substances
CPT/HCPCS: 36415; 70450; 71045; 74177; 80053; 81001; 83036; 83605; 83690; 84443; 84484; 85025; 85610; 86850; 86900; 87040; 87086; 87324; 93005; 93306; G0378; J0744; J1650; Q9967; J7030